=== PATIENT | male | born 1970 | race Caucasian/White ===

== ENCOUNTER 2017-02-15 10:58 | Emergency (ER) | payer BC, OTHER ==
[2017-02-15 11:08] VITALS: BP 132/86
--- NOTE | 2017-02-15 11:35 | UC ---
Respiratory Complaint HPI - HPI Summary HPI Summary: 46 yo male with cough x 1 week no f/c no cp or sob has nasal congestion and post nasal drip cough productive of greenish mucous - History of Current Complaint Chief Complaint: UCRespiratory Stated Complaint: COUGH CONGESTION Time Seen by Provider: 02/15/17 11:24 Hx Obtained From: Patient Onset/Duration: Gradual Onset Timing: Constant Severity Initially: Mild Severity Currently: Mild Pain Intensity: 3 Pain Scale Used: 0-10 Numeric Character: Cough: Productive Aggravating Factors: Deep Breaths Alleviating Factors: Nothing Associated Signs And Symptoms: Positive: Nasal Congestion, Hoarseness, Sinus Discomfort - Allergies/Home Medications Allergies/Adverse Reactions: Allergies Allergy/AdvReac Type Severity Reaction Status Date / Time Codeine Allergy Hives Verified 02/15/17 11:08 PMH/Surg Hx/FS Hx/Imm Hx Previously Healthy: Yes Respiratory History: Bronchitis - Surgical History Surgical History: Yes Surgery Procedure, Year, and Place: right inguinal repair - Family History Known Family History: Positive: Hypertension Negative: Cardiac Disease - Social History Alcohol Use: Occasionally Substance Use Type: None Smoking Status (MU): Heavy Every Day Tobacco Smoker Type: Cigarettes Amount Used/How Often: <1/2 ppd Length of Time of Smoking/Using Tobacco: started ~ age 19 Have You Smoked in the Last Year: Yes Household Exposure Type: Cigarettes Review of Systems Constitutional: Negative Skin: Negative Eyes: Negative ENT: Nasal Discharge, Sinus Congestion, Sinus Pain/Tenderness Respiratory: Cough Cardiovascular: Negative Gastrointestinal: Negative Genitourinary: Negative Motor: Negative Neurovascular: Negative Musculoskeletal: Negative Neurological: Negative Psychological: Negative Is Patient Immunocompromised?: No All Other Systems Reviewed And Are Negative: Yes Physical Exam Triage Information Reviewed: Yes Appearance: Well-Appearing, No Pain Distress, Well-Nourished Vital Signs: Initial Vital Signs Temp 99.6 F 02/15/17 11:03 Pulse 89 02/15/17 11:03 Resp 18 02/15/17 11:03 BP 132/86 02/15/17 11:03 Pulse Ox 96 02/15/17 11:03 Vital Signs Reviewed: Yes Eyes: Positive: Conjunctiva Clear ENT: Positive: Hearing grossly normal, Pharynx normal, Nasal congestion, Nasal drainage, TMs normal, Other: - R>L max sinus tenderness. Negative: Tonsillar exudate, Trismus, Muffled/hoarse voice Dental: Negative: Dental Fracture @, Abscess @ Neck: Positive: Supple, Nontender, No Lymphadenopathy Respiratory: Positive: Lungs clear, Normal breath sounds, No respiratory distress Cardiovascular: Positive: RRR, No Murmur Musculoskeletal: Positive: ROM Intact, No Edema Neurological: Positive: Alert Psychological Exam: Normal Skin Exam: Normal UC Diagnostic Evaluation - Laboratory O2 Sat by Pulse Oximetry: 96 - normal/not hypoxic Respiratory Course/Dx - Differential Dx/Diagnosis Provider Diagnoses: acute bronchitis Discharge - Discharge Plan Condition: Stable Disposition: HOME Prescriptions: Amoxicillin PO (*) [Amoxicillin 875 MG (*)] 875 mg PO BID #20 tab Fluticasone NASAL SPRAY 50MCG* [Flonase NASAL SPRAY 50MCG*] 2 spray BOTH NARES DAILY #1 btl Patient Education Materials: Sinusitis (ED) Referrals: Zaira Leonardo MD [Primary Care Provider] - 7 Days (if not better) Additional Instructions: AFRIN nasal spray 2 sprays each nostril 3x day with for 3 days only
== END 2017-02-15 11:35 | disposition home or self-care (01) ==
LOC: UCEAST 10:58
DX: J20.9 Acute bronchitis, unspecified (principal); Z88.5 Allergy status to narcotic agent; F17.210 Nicotine dependence, cigarettes, uncomplicated
CPT/HCPCS: 99212; G0463